=== PATIENT | male | born 1955 | race Caucasian/White ===

== ENCOUNTER 2018-02-28 00:38 | Emergency (ER) | payer MEDICAID ==
[~2018-02-28] VITALS: Ht 172.7 cm; Wt 74.8 kg
--- NOTE | 2018-02-28 00:39 | NUR ---
Patient to ER bed 1 to gown for evaluation. Side rails up. Report given to Saranya HUTCHISON.
--- NOTE | 2018-02-28 00:40 | NUR ---
# 18 gauge angiocath placed to LAC. Use of asceptic technique. Opsite placed over site. Blood return noted. Blood for lab drawn from site. Flushed with 10 cc of normal saline. No evidence of infiltration noted. Patient tolerated well.
[2018-02-28 00:50] VITALS: BP_SYST 135
--- NOTE | 2018-02-28 00:50 | NUR ---
Patient brought to ED via BLS in custody of with c/o high blood sugar. Patient recorded blood of 529 in prehospital setting. Upon arrival presents with blood sugar greater than 600. Patient presents lethargic. Denies medication use x 2 days. Repsponds appropriately. C/O 3/10 lower leg pain with muscle cramps. Hx of toe amputation. -CP -SOB -N/V Afebrile.
--- NOTE | 2018-02-28 00:59 | NUR ---
ED MD Rodrigues at bedside for medical evaluation.
[2018-02-28 01:14] LABS: BASOPHILS % (AUTO) 0.6 % (0.0-2.0); EOSINOPHILS # (AUTO) 0.1 K/uL (0.0-0.4); EOSINOPHILS % (AUTO) 0.9 % (0.0-4.0); HEMATOCRIT 43.3 % (36-54); HEMOGLOBIN 14.6 g/dL (14.0-18.0); LYMPHOCYTES # (AUTO) 1.6 K/uL (1.0-5.5); LYMPHOCYTES % (AUTO) 22.7 % (20.5-51.5); MEAN CORPUSCULAR HEMOGLOBIN 31 pg (27-31); MEAN CORPUSCULAR HGB CONC 34 % (32-36); MEAN CORPUSCULAR VOLUME 92 fL (79.0-98.0); MONOCYTES # (AUTO) 0.5 K/uL (0.0-1.0); MONOCYTES % (AUTO) 6.7 % (1.7-9.3); NEUTROPHILS # (AUTO) 4.9 K/uL (1.8-7.7); NEUTROPHILS % (AUTO) 69.1 % (40.0-70.0); PLATELET COUNT (AUTO) 313 K/uL (130-430); RED BLOOD CELL COUNT(AUTO) 4.72 MIL/uL (4.2-6.2); RED CELL DISTRIBUTION WIDTH 12.1 % (9.0-15.0); WHITE BLOOD COUNT (AUTO) 7.1 K/uL (4.8-10.8)
[2018-02-28] MEDS ORDERED: NACL 0.9% 1,000 ML IV ONE (01:15)
[2018-02-28] MEDS ORDERED: INSULIN REGULAR, HUMAN 10 UNITS/0.1 ML INJ IVP ONE (01:15)
[2018-02-28 01:21] LABS: ANION GAP 13 (5-15); CALCIUM 8.6 mg/dL (8.4-11.0); CHLORIDE 94 mmol/L (98-107); CREATININE 0.94 mg/dL (0.55-1.30); POTASSIUM 3.8 mmol/L (3.5-5.1); SODIUM SERUM 130 mmol/L (136-145); UREA NITROGEN, BLOOD 15 mg/dL (8-21)
[2018-02-28 01:23] LABS: ALBUMIN 3.6 g/dL (3.4-4.8); ALCOHOL, BLOOD 59 mg/dL (<10); ASPARTATE AMINOTRANSFERASE 23 U/L (10-37); TOTAL BILIRUBIN 0.4 mg/dL (0.0-1.0)
[2018-02-28 01:24] LABS: GFR AFRICAN AMERICAN 105 mL/min (>90)
[2018-02-28 01:27] LABS: GLUCOSE 593 mg/dL (70-99)
[2018-02-28 01:46] LABS: ALANINE AMINOTRANSFERASE 30 U/L (12-78)
[2018-02-28 02:13] LABS: ACETONE, SERUM NEGATIVE (NEGATIVE)
[2018-02-28 02:26] LABS: BILIRUBIN,URINE NEGATIVE (NEGATIVE); CLARITY/URINE CLEAR (CLEAR); COLOR,URINE YELLOW (YELLOW); GLUCOSE,URINE 3+ (NEGATIVE); KETONES,URINE NEGATIVE (NEGATIVE); LEUKOCYTE ESTERASE ,URINE NEGATIVE (NEGATIVE); NITRITE, URINE NEGATIVE (NEGATIVE); PH,URINE 5.5 (5.0-8.0); PROTEIN URINE NEGATIVE (NEGATIVE); UROBILINOGEN,URINE 0.2 (0.2-1.0)
[2018-02-28 02:27] LABS: BLOOD, URINE TRACE (NEGATIVE)
--- NOTE | 2018-02-28 02:40 | NUR ---
Accucheck 277 via fingerstick. ED MD Rodrigues made aware. Patient to be placed for dischage per ED MD Rodrigues.
[2018-02-28] MEDS ORDERED: POTASSIUM CHLORIDE 20 MEQ/PKT PACKET PO ONE (02:45)
[2018-02-28] MEDS ORDERED: KETOROLAC TROMETHAMINE 30 MG VIAL IVP ONE (02:45)
[2018-02-28] MEDS ORDERED: POTASSIUM CHLORIDE 20 MEQ/PKT PACKET ONE (02:48)
[2018-02-28] MEDS ORDERED: KETOROLAC TROMETHAMINE 30 MG VIAL ONE (02:48)
--- NOTE | 2018-02-28 02:50 | NUR ---
ED MD Rodrigues at bedside reassessing patient.
[2018-02-28 02:56] LABS: BARBITURATE, URINE NEGATIVE (NEG <=200); BENZODIAZEPINE, URINE NEGATIVE (NEG <=150); CANNABINOID, URINE NEGATIVE (NEG <=50); COCAINE, URINE POSITIVE (NEG <=150); METHAMPHETAMINES SCREEN,URINE POSITIVE (NEG <=500); OPIATE, URINE NEGATIVE (NEG <=100); PHENCYCLIDINE SCREEN,URINE NEGATIVE (NEG <=25); UR TRICYCLIC ANTIDEPRESSANTS NEGATIVE (NEG <=300); URINE AMPHETAMINE POSITIVE (NEG <=500); URINE METHADONE NEGATIVE (NEG <=200); URINE OXYCODONE SCREEN NEGATIVE (NEG <=100); URINE PROPOXYPHENE SCREEN NEGATIVE (NEG <=300)
[2018-02-28 03:00] LABS: BACTERIA,URINE FEW /HPF (None Seen); WBC,URINE 0-3 /HPF (0-3)
[2018-02-28 03:01] VITALS: BP_SYST 135
--- NOTE | 2018-02-28 03:01 | NUR ---
Patient given written and verbal discharge instructions and verbalizes understanding. ER MD discussed with patient the results and treatment provided. Patient in stable condition. ID arm band removed. IV catheter removed intact and dressing applied, no active bleeding. No Rx given. Patient educated on pain management and to follow up with PMD. Pain Scale 0/10. Opportunity for questions provided and answered. Patient discharged in [facility] custody, ambulatory with handcuffs.
== END 2018-02-28 03:01 ==
LOC: SED 00:38
DX: E11.65 Type 2 diabetes mellitus with hyperglycemia (principal); F14.90 Cocaine use, unspecified, uncomplicated; F15.90 Other stimulant use, unspecified, uncomplicated; F10.99 Alcohol use, unspecified with unspecified alcohol-induced disorder; R74.0 Nonspecific elevation of levels of transaminase and lactic acid dehydrogenase [LDH]
CPT/HCPCS: 36415; 80053; 80307; 81000; 82009; 85025; 96361; 96374; 96375; 99284; G0482; J1815; J1885; J7030

== ENCOUNTER 2024-01-28 19:24 | Inpatient (IN) | payer MEDICARE, MEDICAID ==
[~2024-01-28] VITALS: Ht 165.1 cm; Wt 72.1 kg
[2024-01-28 19:30] VITALS: BP_SYST 196; PULSE 93; RESP 16; TEMP 97.9; O2SAT 100
[2024-01-28] MEDS ORDERED: AMLO10TA88 PO (19:57)
[2024-01-28] MEDS ORDERED: HYDR-3927 PO (19:57)
[2024-01-28] MEDS ORDERED: ATOR-1 PO (19:57)
[2024-01-28] MEDS ORDERED: SSNOVOLOG SUBCUT (19:57)
[2024-01-28] MEDS ORDERED: METF-380 PO (19:57)
[2024-01-28] MEDS ORDERED: CEPH-548 PO (19:57)
[2024-01-28] MEDS: ONDANSETRON HCL 4 MG/2 ML VIAL IVP ONE (20:05)
[2024-01-28] MEDS: ACETAMINOPHEN 500 MG TABLET PO ONE (20:05)
[2024-01-28] MEDS: NACL 0.9% 1,000 ML IV ONE (20:06)
[2024-01-28 20:15] LABS: BASOPHILS % (AUTO) 0.3 % (0.0-2.0); HEMATOCRIT 36.6 % (36-54); HEMOGLOBIN 12.9 g/dL (14.0-18.0); LYMPHOCYTES # (AUTO) 0.8 K/uL (1.0-5.5); LYMPHOCYTES % (AUTO) 8.7 % (20.5-51.5); MEAN CORPUSCULAR HEMOGLOBIN 32 pg (27-31); MEAN CORPUSCULAR HGB CONC 35 % (32-36); MEAN CORPUSCULAR VOLUME 90 fL (79.0-98.0); MONOCYTES # (AUTO) 0.7 K/uL (0.0-1.0); NEUTROPHILS # (AUTO) 7.7 K/uL (1.8-7.7); PLATELET COUNT (AUTO) 430 K/uL (130-430); RED BLOOD CELL COUNT(AUTO) 4.07 MIL/uL (4.2-6.2); RED CELL DISTRIBUTION WIDTH 12.4 % (9.0-15.0); WHITE BLOOD COUNT (AUTO) 9.3 K/uL (4.8-10.8)
[2024-01-28 20:28] LABS: INR 1.1 (0.80-1.20); PROTHROMBIN TIME 11.2 SECS (9.5-12.5)
[2024-01-28 20:38] LABS: ALANINE AMINOTRANSFERASE 15 U/L (12-78); ALBUMIN 3.2 g/dL (3.4-4.8); ANION GAP 16 (5-15); ASPARTATE AMINOTRANSFERASE 16 U/L (10-37); BILIRUBIN,DIRECT 0.2 mg/dL (0.0-0.3); CALCIUM 8.9 mg/dL (8.4-11.0); CARBON DIOXIDE 20 mmol/L (23-29); CHLORIDE 90 mmol/L (98-107); CREATININE 1.68 mg/dL (0.55-1.30); GFR AFRICAN AMERICAN 53 mL/min (>90); POTASSIUM 3.3 mmol/L (3.5-5.1); SODIUM SERUM 126 mmol/L (136-145); TOTAL BILIRUBIN 0.7 mg/dL (0.0-1.0); UREA NITROGEN, BLOOD 18 mg/dL (8-21)
[2024-01-28 20:41] LABS: GFR NON AFRICAN-AMERICAN 44 mL/min (>90); GLUCOSE 573 mg/dL (74-106)
[2024-01-28] MEDS: INSULIN REGULAR, HUMAN 10 UNITS/0.1 ML, 3 ML VIAL IVP ONE (21:19)
[2024-01-28 21:23] LABS: BILIRUBIN,URINE NEGATIVE (NEGATIVE); CLARITY/URINE CLEAR (CLEAR); COLOR,URINE YELLOW (YELLOW); GLUCOSE,URINE 3+ (NEGATIVE); KETONES,URINE 3+ (NEGATIVE); LEUKOCYTE ESTERASE ,URINE NEGATIVE (NEGATIVE); NITRITE, URINE NEGATIVE (NEGATIVE); PROTEIN URINE 1+ (NEGATIVE); UROBILINOGEN,URINE 0.2 (0.2-1.0)
[2024-01-28 21:31] LABS: BLOOD, URINE TRACE (NEGATIVE)
[2024-01-28 21:32] LABS: BACTERIA,URINE RARE /HPF (None Seen); MUCUS,URINE None Seen /LPF (None Seen); RBC,URINE NONE SEEN /HPF (0-3); WBC,URINE NONE SEEN /HPF (0-3)
[2024-01-28] MEDS: POTASSIUM CHLORIDE 20 MEQ/PKT PACKET PO ONE (22:47)
[2024-01-28] MEDS: KETOROLAC TROMETHAMINE 15 MG VIAL IVP ONE (22:48)
[2024-01-28] MEDS: PANTOPRAZOLE SODIUM 40 MG/VIAL (PROTONIX) IVP ONE (22:48)
[2024-01-28 23:10] LABS: CALCIUM 8.5 mg/dL (8.4-11.0); CREATININE 1.45 mg/dL (0.55-1.30)
[2024-01-29] VITALS (7 sets, daily range): BP systolic 118–144; PULSE 80–88; RESP 18–24; TEMP 97.3–98.1; O2SAT 95–100
[2024-01-29] MEDS ORDERED: ONDANSETRON HCL 4 MG/2 ML VIAL IVP PRN (00:45)
[2024-01-29] MEDS ORDERED: HYDROcodone/ACETAMIN 5-325 MG TAB (NORCO/ VICODIN) PO PRN (00:45)
[2024-01-29] MEDS ORDERED: ACETAMINOPHEN 325 MG TABLET PO PRN (00:45)
[2024-01-29] MEDS ORDERED: D5W 1,000 ML IV PRN (01:00)
[2024-01-29] MEDS ORDERED: DEXTROSE 50% JECT 50 ML DISP.SYRIN IVP PRN ×2 (01:00→09:15)
[2024-01-29] MEDS ORDERED: GLUCOSE (DEXTROSE) ORAL GEL -Adults PO PRN (01:00)
[2024-01-29] MEDS ORDERED: hydrALAZINE HCL 20 MG/ML VIAL IVP PRN (01:00)
[2024-01-29] MEDS ORDERED: cefTRIAXone 1 GM VIAL ONE (01:13)
[2024-01-29] MEDS: cefTRIAXone 1 GM in D5W 50 ML IV ONE (01:14)
[2024-01-29 02:49] LABS: ABG O2 SAT% ESTIMATE 98.5 % (94.0-100.0); BLOOD GAS BASE EXCESS -2.9 mmol/L (-3.0-3.0); BLOOD GAS HCO3 19.2 mmol/L (21.0-27.0); BLOOD GAS PCO2 26.4 mmHg (32.0-45.0); BLOOD GAS PH 7.479 (7.350-7.450); BLOOD GAS PO2 113.9 mmHg (75.0-100.0)
[2024-01-29 02:50] LABS: ALLEN'S TEST Y (P)
[2024-01-29] MEDS: NACL 0.9% 1,000 ML IV ONE (03:47)
[2024-01-29] MEDS: INSULIN REGULAR, HUMAN 100 UNITS/ML, 3 ML VIAL (humuLIN R) SUBCUT PRN (03:53)
[2024-01-29 04:52] LABS: CALCIUM 8.4 mg/dL (8.4-11.0); CREATININE 1.33 mg/dL (0.55-1.30); POTASSIUM 3.4 mmol/L (3.5-5.1)
[2024-01-29] MEDS: HYDROcodone/ACETAMIN 10-325 MG TAB PO PRN (06:46)
[2024-01-29 08:08] LABS: BASOPHILS % (AUTO) 0.3 % (0.0-2.0); EOSINOPHILS % (AUTO) 0.1 % (0.0-4.0); HEMATOCRIT 34.8 % (36-54); HEMOGLOBIN 12.4 g/dL (14.0-18.0); LYMPHOCYTES # (AUTO) 1.2 K/uL (1.0-5.5); LYMPHOCYTES % (AUTO) 14.2 % (20.5-51.5); MEAN CORPUSCULAR HEMOGLOBIN 31 pg (27-31); MEAN CORPUSCULAR HGB CONC 36 % (32-36); MEAN CORPUSCULAR VOLUME 88 fL (79.0-98.0); MONOCYTES # (AUTO) 0.7 K/uL (0.0-1.0); MONOCYTES % (AUTO) 8.2 % (1.7-9.3); NEUTROPHILS # (AUTO) 6.8 K/uL (1.8-7.7); NEUTROPHILS % (AUTO) 77.2 % (40.0-70.0); PLATELET COUNT (AUTO) 415 K/uL (130-430); RED BLOOD CELL COUNT(AUTO) 3.95 MIL/uL (4.2-6.2); RED CELL DISTRIBUTION WIDTH 12.9 % (9.0-15.0); WHITE BLOOD COUNT (AUTO) 8.8 K/uL (4.8-10.8)
[2024-01-29 08:24] LABS: CALCIUM 8.5 mg/dL (8.4-11.0); CREATININE 1.24 mg/dL (0.55-1.30)
[2024-01-29 08:39] LABS: POTASSIUM 2.8 mmol/L (3.5-5.1)
[2024-01-29] MEDS ORDERED: ATORVASTATIN 20 MG TABLET PO SCH (09:00)
[2024-01-29] MEDS: amLODIPine BESYLATE 10 MG TABLET PO SCH (09:00)
[2024-01-29] MEDS ORDERED: KCL 40 mEq in 100 mL (PREMIX) 100 ML IV ONE (09:30)
[2024-01-29] MEDS: ATORVASTATIN 20 MG TABLET PO SCH (10:35)
[2024-01-29] MEDS: POTASSIUM CHLORIDE 20 MEQ TABLET.ER PO SCH (10:39)
[2024-01-29] MEDS: INSULIN LISPRO SLIDING SCALE 100 UNITS/ML, 3 ML VIAL (humaLOG) SUBCUT PRN (12:21)
[2024-01-29] MEDS: VANCOMYCIN HCL 1,000 MG in NS 250 ML IV SCH (16:56)
[2024-01-29] MEDS: METOCLOPRAMIDE HCL 10 MG/2 ML VIAL IVP SCH (16:57)
[2024-01-29] MEDS: MORPHINE 2 MG/ML INJ. SYRINGE IVP PRN (18:19)
[2024-01-30] VITALS (7 sets, daily range): BP systolic 90–150; PULSE 80–89; RESP 18–22; TEMP 97.9–98.4; O2SAT 96–98
[2024-01-30 10:22] LABS: BASOPHILS % (AUTO) 0.2 % (0.0-2.0); EOSINOPHILS % (AUTO) 0.1 % (0.0-4.0); HEMATOCRIT 36.2 % (36-54); HEMOGLOBIN 12.8 g/dL (14.0-18.0); LYMPHOCYTES # (AUTO) 0.8 K/uL (1.0-5.5); LYMPHOCYTES % (AUTO) 5.5 % (20.5-51.5); MEAN CORPUSCULAR HEMOGLOBIN 32 pg (27-31); MEAN CORPUSCULAR HGB CONC 35 % (32-36); MEAN CORPUSCULAR VOLUME 90 fL (79.0-98.0); MONOCYTES # (AUTO) 0.8 K/uL (0.0-1.0); MONOCYTES % (AUTO) 5.6 % (1.7-9.3); NEUTROPHILS # (AUTO) 12.7 K/uL (1.8-7.7); NEUTROPHILS % (AUTO) 88.6 % (40.0-70.0); PLATELET COUNT (AUTO) 377 K/uL (130-430); RED BLOOD CELL COUNT(AUTO) 4.03 MIL/uL (4.2-6.2); RED CELL DISTRIBUTION WIDTH 13.1 % (9.0-15.0); WHITE BLOOD COUNT (AUTO) 14.4 K/uL (4.8-10.8)
[2024-01-30 11:25] LABS: ALBUMIN 2.5 g/dL (3.4-4.8); CALCIUM 8.4 mg/dL (8.4-11.0); CREATININE 0.7 mg/dL (0.55-1.30); POTASSIUM 4.1 mmol/L (3.5-5.1); THYROID STIMULATING HORMONE 0.55 uIu/mL (0.36-3.74); TOTAL BILIRUBIN 0.5 mg/dL (0.0-1.0); TOTAL PROTEIN, SERUM 7.1 g/dL (6.4-8.3)
[2024-01-30] MEDS ORDERED: levoFLOXacin 750 MG TABLET PO SCH (14:45)
[2024-01-30] MEDS: amLODIPine BESYLATE 5 MG TABLET PO ONE (15:42)
[2024-01-30] MEDS: levoFLOXacin 750 MG TABLET PO ONE (17:17)
[2024-01-30] MEDS: ATORVASTATIN 20 MG TABLET PO SCH (22:12)
[2024-01-30] MEDS: HEPARIN SODIUM,PORCINE 5,000 UNITS/ML VIAL SUBCUT SCH (22:14)
[2024-01-30] MEDS: INSULIN GLARGINE 100 UNITS/ML, 10 ML VIAL SUBCUT SCH (22:28)
[2024-01-31] VITALS (7 sets, daily range): BP systolic 101–143; PULSE 86–98; RESP 16–23; TEMP 97.8–98.9; O2SAT 92–96
[2024-01-31 06:02] LABS: CALCIUM 8.2 mg/dL (8.4-11.0); CREATININE 0.82 mg/dL (0.55-1.30); POTASSIUM 3.5 mmol/L (3.5-5.1); VANCOMYCIN,TROUGH 12.3 ug/mL (10.0-20.0)
[2024-01-31 06:06] LABS: BASOPHILS % (AUTO) 0.3 % (0.0-2.0); HEMOGLOBIN 11.8 g/dL (14.0-18.0); LYMPHOCYTES # (AUTO) 0.5 K/uL (1.0-5.5); LYMPHOCYTES % (AUTO) 3.7 % (20.5-51.5); MEAN CORPUSCULAR HEMOGLOBIN 31 pg (27-31); MEAN CORPUSCULAR HGB CONC 35 % (32-36); MEAN CORPUSCULAR VOLUME 89 fL (79.0-98.0); MONOCYTES # (AUTO) 0.7 K/uL (0.0-1.0); MONOCYTES % (AUTO) 5.1 % (1.7-9.3); NEUTROPHILS # (AUTO) 13.3 K/uL (1.8-7.7); NEUTROPHILS % (AUTO) 90.9 % (40.0-70.0); PLATELET COUNT (AUTO) 362 K/uL (130-430); RED CELL DISTRIBUTION WIDTH 12.7 % (9.0-15.0); WHITE BLOOD COUNT (AUTO) 14.6 K/uL (4.8-10.8)
[2024-01-31] MEDS: amLODIPine BESYLATE 5 MG TABLET PO SCH (09:15)
[2024-01-31] MEDS: levoFLOXacin 750 MG TABLET PO SCH (12:22)
[2024-01-31] MEDS ORDERED: OXYCODONE/ACETAMINOPHEN 5-325 TABLET PO PRN (15:00)
[2024-01-31] MEDS: SODIUM CHLORIDE 1,000 MG TABLET PO SCH (17:49)
[2024-01-31] MEDS: INSULIN Lispro 100 UNITS/ML, 3 ML VIAL (humaLOG) SUBCUT SCH (17:53)
[2024-01-31] MEDS: BALSAM PERU/CASTOR OIL 56.7 GM OINT...G. TP SCH (19:03)
[2024-01-31] MEDS: OXYCODONE/ACETAMINOPHEN *10*mg/325 mg TABLET PO PRN (21:09)
[2024-01-31] MEDS: INSULIN GLARGINE 100 UNITS/ML, 10 ML VIAL SUBCUT SCH (21:12)
[2024-01-31] MEDS ORDERED: ZOLPIDEM TARTRATE 5 MG TABLET PO PRN (21:15)
[2024-02-01] VITALS: BP_SYST 127; PULSE 88; RESP 18; TEMP 98.6; O2SAT 97
[2024-02-01 07:58] LABS: BASOPHILS % (AUTO) 0.2 % (0.0-2.0); EOSINOPHILS % (AUTO) 0.2 % (0.0-4.0); HEMATOCRIT 33.8 % (36-54); HEMOGLOBIN 11.6 g/dL (14.0-18.0); LYMPHOCYTES # (AUTO) 0.9 K/uL (1.0-5.5); LYMPHOCYTES % (AUTO) 7.5 % (20.5-51.5); MEAN CORPUSCULAR HEMOGLOBIN 31 pg (27-31); MEAN CORPUSCULAR HGB CONC 34 % (32-36); MEAN CORPUSCULAR VOLUME 90 fL (79.0-98.0); MONOCYTES # (AUTO) 0.8 K/uL (0.0-1.0); NEUTROPHILS # (AUTO) 10.9 K/uL (1.8-7.7); NEUTROPHILS % (AUTO) 86.1 % (40.0-70.0); PLATELET COUNT (AUTO) 418 K/uL (130-430); RED BLOOD CELL COUNT(AUTO) 3.77 MIL/uL (4.2-6.2); RED CELL DISTRIBUTION WIDTH 12.8 % (9.0-15.0); WHITE BLOOD COUNT (AUTO) 12.6 K/uL (4.8-10.8)
[2024-02-01 08:00] VITALS: BP_SYST 112; PULSE 68; RESP 18; TEMP 98.2; O2SAT 92
[2024-02-01 08:20] LABS: CALCIUM 8.5 mg/dL (8.4-11.0); CREATININE 0.85 mg/dL (0.55-1.30); POTASSIUM 3.4 mmol/L (3.5-5.1)
[2024-02-01] MEDS: POTASSIUM CHLORIDE 20 MEQ TABLET.ER PO ONE (10:41)
[2024-02-01] MEDS: DOCUSATE SODIUM 100 MG CAPSULE PO ONE (10:42)
[2024-02-01] MEDS: MILK OF MAGNESIA 30 ML UDC PO ONE (10:42)
[2024-02-01] MEDS: LIDOCAINE PATCH 5% 1 EA TP ONE (10:42)
[2024-02-01 12:00] VITALS: BP_SYST 118; PULSE 79; RESP 18; TEMP 98.2; O2SAT 91
[2024-02-01] MEDS: BISACODYL 10 MG/SUPPOSITORY RC PRN (15:58)
[2024-02-01 20:00] VITALS: BP_SYST 132; PULSE 84; RESP 20; TEMP 97.5; O2SAT 93
[2024-02-01] MEDS: INSULIN GLARGINE 100 UNITS/ML, 10 ML VIAL SUBCUT SCH (23:20)
[2024-02-01 23:30] VITALS: O2SAT 92
[2024-02-02] VITALS: BP_SYST 112; PULSE 89; RESP 18; TEMP 99.7; O2SAT 92
[2024-02-02 07:37] LABS: CALCIUM 8.7 mg/dL (8.4-11.0); CREATININE 0.81 mg/dL (0.55-1.30); POTASSIUM 4.2 mmol/L (3.5-5.1)
[2024-02-02 07:58] LABS: BASOPHILS # (AUTO) 0.1 K/uL (0.0-0.2); BASOPHILS % (AUTO) 0.3 % (0.0-2.0); EOSINOPHILS % (AUTO) 0.1 % (0.0-4.0); HEMATOCRIT 31.1 % (36-54); HEMOGLOBIN 10.6 g/dL (14.0-18.0); LYMPHOCYTES # (AUTO) 1.3 K/uL (1.0-5.5); LYMPHOCYTES % (AUTO) 7.3 % (20.5-51.5); MEAN CORPUSCULAR HEMOGLOBIN 31 pg (27-31); MEAN CORPUSCULAR HGB CONC 34 % (32-36); MEAN CORPUSCULAR VOLUME 91 fL (79.0-98.0); MONOCYTES # (AUTO) 1.5 K/uL (0.0-1.0); MONOCYTES % (AUTO) 8.8 % (1.7-9.3); NEUTROPHILS # (AUTO) 14.7 K/uL (1.8-7.7); NEUTROPHILS % (AUTO) 83.5 % (40.0-70.0); PLATELET COUNT (AUTO) 437 K/uL (130-430); RED BLOOD CELL COUNT(AUTO) 3.43 MIL/uL (4.2-6.2); RED CELL DISTRIBUTION WIDTH 12.8 % (9.0-15.0)
[2024-02-02 08:00] VITALS: BP_SYST 96; PULSE 89; RESP 24; TEMP 97.8; O2SAT 91; O2SAT 94
[2024-02-02 08:28] LABS: WHITE BLOOD COUNT (AUTO) 17.6 K/uL (4.8-10.8)
[2024-02-02 12:43] VITALS: BP_SYST 123; PULSE 63; RESP 17; TEMP 97.4; O2SAT 97
[2024-02-02] MEDS: POLYETHYLENE GLYCOL 3350, 17 GM/ POWD.PACK PO SCH (12:50)
[2024-02-02] MEDS: LIDOCAINE PATCH 5% 1 EA TP SCH (12:50)
[2024-02-02] MEDS: DOCUSATE SODIUM 100 MG CAPSULE PO SCH (12:54)
[2024-02-02] MEDS: GOLYTELY / COLYTE SOLUTION 4 LITERS PO ONE (13:02)
[2024-02-02 16:43] VITALS: BP_SYST 102; PULSE 88; RESP 18; TEMP 99.4; O2SAT 93
[2024-02-02 20:00] VITALS: BP_SYST 127; PULSE 109; RESP 22; TEMP 100; O2SAT 92
[2024-02-03] VITALS (7 sets, daily range): BP systolic 107–124; PULSE 80–87; RESP 17–19; TEMP 98–98.8; O2SAT 91–94
[2024-02-03 07:44] LABS: BASOPHILS # (AUTO) 0.1 K/uL (0.0-0.2); BASOPHILS % (AUTO) 0.6 % (0.0-2.0); HEMATOCRIT 32.6 % (36-54); HEMOGLOBIN 11.3 g/dL (14.0-18.0); LYMPHOCYTES # (AUTO) 1.8 K/uL (1.0-5.5); LYMPHOCYTES % (AUTO) 9.2 % (20.5-51.5); MEAN CORPUSCULAR HEMOGLOBIN 31 pg (27-31); MEAN CORPUSCULAR HGB CONC 35 % (32-36); MEAN CORPUSCULAR VOLUME 91 fL (79.0-98.0); MONOCYTES # (AUTO) 1.9 K/uL (0.0-1.0); MONOCYTES % (AUTO) 9.5 % (1.7-9.3); NEUTROPHILS # (AUTO) 15.9 K/uL (1.8-7.7); NEUTROPHILS % (AUTO) 80.7 % (40.0-70.0); PLATELET COUNT (AUTO) 436 K/uL (130-430); WHITE BLOOD COUNT (AUTO) 19.7 K/uL (4.8-10.8)
[2024-02-03 07:48] LABS: CALCIUM 8.7 mg/dL (8.4-11.0); CREATININE 0.87 mg/dL (0.55-1.30); POTASSIUM 4.1 mmol/L (3.5-5.1)
[2024-02-03] MEDS: SODIUM CHLORIDE 3% *HI-ALERT* 500 ML IV SCH (23:29)
[2024-02-04 01:42] VITALS: BP_SYST 119; PULSE 75; RESP 18; TEMP 98.5; O2SAT 93
[2024-02-04 06:10] LABS: BASOPHILS # (AUTO) 0.1 K/uL (0.0-0.2); BASOPHILS % (AUTO) 0.6 % (0.0-2.0); EOSINOPHILS % (AUTO) 0.1 % (0.0-4.0); HEMATOCRIT 28.6 % (36-54); LYMPHOCYTES # (AUTO) 1.6 K/uL (1.0-5.5); LYMPHOCYTES % (AUTO) 13.1 % (20.5-51.5); MEAN CORPUSCULAR HEMOGLOBIN 32 pg (27-31); MEAN CORPUSCULAR HGB CONC 35 % (32-36); MEAN CORPUSCULAR VOLUME 91 fL (79.0-98.0); MONOCYTES # (AUTO) 1.1 K/uL (0.0-1.0); MONOCYTES % (AUTO) 9.3 % (1.7-9.3); NEUTROPHILS # (AUTO) 9.2 K/uL (1.8-7.7); NEUTROPHILS % (AUTO) 76.9 % (40.0-70.0); PLATELET COUNT (AUTO) 402 K/uL (130-430); RED BLOOD CELL COUNT(AUTO) 3.15 MIL/uL (4.2-6.2); WHITE BLOOD COUNT (AUTO) 11.9 K/uL (4.8-10.8)
[2024-02-04 06:29] LABS: ALBUMIN 1.8 g/dL (3.4-4.8); CALCIUM 8.1 mg/dL (8.4-11.0); CREATININE 0.74 mg/dL (0.55-1.30); POTASSIUM 4.2 mmol/L (3.5-5.1); TOTAL BILIRUBIN 0.4 mg/dL (0.0-1.0); TOTAL PROTEIN, SERUM 6.3 g/dL (6.4-8.3)
[2024-02-04 08:00] VITALS: BP_SYST 110; PULSE 75; RESP 18; TEMP 97.8; O2SAT 96
[2024-02-04 09:20] VITALS: O2SAT 94
[2024-02-04 11:17] VITALS: BP_SYST 100; PULSE 81; RESP 17; TEMP 98.1; O2SAT 94
[2024-02-04 16:21] VITALS: BP_SYST 104; PULSE 86; RESP 18; TEMP 98.2; O2SAT 94
[2024-02-04 20:00] VITALS: BP_SYST 118; PULSE 81; RESP 18; TEMP 98; O2SAT 95
[2024-02-05] VITALS: BP_SYST 116; PULSE 78; RESP 18; TEMP 97.8; O2SAT 95
[2024-02-05 04:40] LABS: BASOPHILS % (AUTO) 0.5 % (0.0-2.0); EOSINOPHILS # (AUTO) 0.1 K/uL (0.0-0.4); EOSINOPHILS % (AUTO) 0.6 % (0.0-4.0); HEMATOCRIT 28.8 % (36-54); HEMOGLOBIN 9.9 g/dL (14.0-18.0); LYMPHOCYTES # (AUTO) 1.1 K/uL (1.0-5.5); LYMPHOCYTES % (AUTO) 11.9 % (20.5-51.5); MEAN CORPUSCULAR HEMOGLOBIN 31 pg (27-31); MEAN CORPUSCULAR HGB CONC 34 % (32-36); MEAN CORPUSCULAR VOLUME 91 fL (79.0-98.0); MONOCYTES % (AUTO) 10.2 % (1.7-9.3); NEUTROPHILS # (AUTO) 7.2 K/uL (1.8-7.7); NEUTROPHILS % (AUTO) 76.8 % (40.0-70.0); PLATELET COUNT (AUTO) 430 K/uL (130-430); RED BLOOD CELL COUNT(AUTO) 3.17 MIL/uL (4.2-6.2); RED CELL DISTRIBUTION WIDTH 12.7 % (9.0-15.0); WHITE BLOOD COUNT (AUTO) 9.3 K/uL (4.8-10.8)
[2024-02-05 04:49] LABS: ALBUMIN 1.9 g/dL (3.4-4.8); CALCIUM 8.3 mg/dL (8.4-11.0); CREATININE 0.78 mg/dL (0.55-1.30); POTASSIUM 4.4 mmol/L (3.5-5.1); TOTAL BILIRUBIN 0.3 mg/dL (0.0-1.0); TOTAL PROTEIN, SERUM 6.2 g/dL (6.4-8.3)
[2024-02-05 08:02] VITALS: BP_SYST 120; PULSE 74; RESP 17; TEMP 97.6; O2SAT 99
[2024-02-05 08:05] VITALS: O2SAT 99
[2024-02-05 11:19] VITALS: BP_SYST 153; PULSE 88; RESP 16; TEMP 97.9; O2SAT 93
[2024-02-05] MEDS ORDERED: LEVO750T64 PO (15:32)
[2024-02-05 16:04] VITALS: BP_SYST 125; PULSE 77; RESP 18; TEMP 98.6; O2SAT 98
== END 2024-02-05 16:15 | disposition home health service (06) | DRG 643 ==
LOC: SED 19:24 → STU 01-29 00:20 → SMU 01-31 05:25
PROVIDERS: ADMIT Internal Medicine; ATTEND Internal Medicine
DX: E22.2 Syndrome of inappropriate secretion of antidiuretic hormone (principal); J18.9 Pneumonia, unspecified organism; S22.42XA Multiple fractures of ribs, left side, initial encounter for closed fracture; N39.0 Urinary tract infection, site not specified; E11.65 Type 2 diabetes mellitus with hyperglycemia; I10 Essential (primary) hypertension; Z96.651 Presence of right artificial knee joint; E11.51 Type 2 diabetes mellitus with diabetic peripheral angiopathy without gangrene; E78.5 Hyperlipidemia, unspecified; E87.6 Hypokalemia; W18.39XA Other fall on same level, initial encounter; F17.210 Nicotine dependence, cigarettes, uncomplicated; Z79.4 Long term (current) use of insulin; Y93.89 Activity, other specified; Y92.89 Other specified places as the place of occurrence of the external cause; Y99.8 Other external cause status; Z56.0 Unemployment, unspecified; Y95 Nosocomial condition
CPT/HCPCS: 36415; 36600; 70450-TC; 71045; 71250-TC; 80048; 80053; 80061; 80076; 80202; 81000; 81001; 81015; 82803; 82948; 83037; 83605; 83690; 83735; 83880; 84443; 84484; 85025; 85610; 85730; 87040; 87081; 87086; 93005; 93306; 96374; 97110-GP; 97116-GP; 97530-GP; 99291; 99292; G0378; J0696; J1644; J1815; J1885; J2270; J2405; J2470; J2765; J3370; J7050